=== PATIENT | female | born 1965 | race Caucasian/White ===

== ENCOUNTER 2021-07-23 06:04 | Day surgery (SDC) | payer BC ==
[~2021-07-23 06:04] MED LIST: Midazolam 1 MG/ML 2 ML SDV ONE; Sodium Chloride 0.9% 10 ML Syringe FLUSH PRN; Sodium Chloride 0.9% 10 ML Syringe FLUSH SCH; fentaNYL 100 MCG/2 ML SDV ONE
[2021-07-23] MEDS ORDERED: Midazolam 1 MG/ML 2 ML SDV IV ONE (06:05)
[2021-07-23] MEDS ORDERED: fentaNYL 100 MCG/2 ML SDV IV ONE (06:05)
[2021-07-23] MEDS: Dextrose 5%-0.45% NaCl 1,000 ML IV SCH (06:37)
[2021-07-23] MEDS: fentaNYL 100 MCG/2 ML SDV IV ONE ×2 (07:12→07:13)
[2021-07-23] MEDS: Midazolam 1 MG/ML 2 ML SDV IV ONE ×2 (07:13→07:14)
== END 2021-07-23 09:15 | disposition home or self-care (01) ==
LOC: DL.ENDO 06:04
PROVIDERS: ATTEND Internal Medicine Gastroenterology
DX: K20.0 Eosinophilic esophagitis (principal); K57.30 Diverticulosis of large intestine without perforation or abscess without bleeding; M54.50 Low back pain, unspecified; E66.09 Other obesity due to excess calories; Z88.2 Allergy status to sulfonamides; Z88.5 Allergy status to narcotic agent; Z88.1 Allergy status to other antibiotic agents; Z86.16 Personal history of COVID-19; Z90.89 Acquired absence of other organs; Z98.890 Other specified postprocedural states; Z98.818 Other dental procedure status; Z68.42 Body mass index [BMI] 45.0-49.9, adult; Z87.39 Personal history of other diseases of the musculoskeletal system and connective tissue; Z86.69 Personal history of other diseases of the nervous system and sense organs; Z01.812 Encounter for preprocedural laboratory examination; Z20.822 Contact with and (suspected) exposure to COVID-19
CPT/HCPCS: 43239; 87077; 87635; J2250; J3010; J7042; U0002